=== PATIENT | female | born 1935 ===

== ENCOUNTER 2018-04-12 19:51 | Inpatient (IN) | payer MEDICARE, OTHER ==
[~2018-04-12] VITALS: Ht 153.7 cm; Wt 51.3 kg
[2018-04-12] MEDS ORDERED: ondansetron/PF 4mg/2ml inj IV ONE (19:55)
[2018-04-12] MEDS ORDERED: normal saline 1000ML IV soln IVB ONE (19:55)
[2018-04-12] MEDS ORDERED: morphine 4 MG/ML inj SYRINge IV PRN (19:55)
[2018-04-12 20:31] LABS: BASOPHILS # (AUTO) 0.1 X10'3 (0-0.2); BASOPHILS % (AUTO) 1.1 % (0-1); EOSINOPHILS # (AUTO) 0.4 X10'3 (0-0.9); EOSINOPHILS % (AUTO) 3.2 % (0-6); HEMATOCRIT 47.3 % (35.0-45.0); HEMOGLOBIN 15.7 g/dl (12.0-16.0); LYMPHOCYTES # (AUTO) 2.2 X10'3 (1.1-4.8); LYMPHOCYTES % (AUTO) 19.8 % (21-51); MEAN CORPUSCULAR HEMOGLOBIN 31.9 PG (27.0-31.0); MEAN CORPUSCULAR HGB CONC 33.1 % (33.0-36.5); MEAN CORPUSCULAR VOLUME 96.3 FL (78-98); MEAN PLATELET VOLUME 9.6 FL (7.4-10.4); MONOCYTES # (AUTO) 0.7 X10'3 (0-0.9); MONOCYTES % (AUTO) 6.6 % (2-12); NEUTROPHILS # (AUTO) 7.8 X10'3 (1.8-7.7); NEUTROPHILS % (AUTO) 69.3 % (42-75); PLATELET COUNT 294 X10'3 (140-440); RED BLOOD COUNT 4.91 X10'6 (4.20-5.60); RED CELL DISTRIBUTION WIDTH 14.9 % (11.5-14.5); WHITE BLOOD COUNT 11.3 X10'3 (4.5-11.0)
[2018-04-12 20:47] LABS: ALANINE AMINOTRANSFERASE 85 U/L (12-78); ALBUMIN 2.9 G/DL (3.4-5.0); ALKALINE PHOSPHATASE 271 IU/L (46-116); ANION GAP 13 (8-16); BILIRUBIN,TOTAL 10.8 MG/DL (0.1-1.0); BLOOD UREA NITROGEN 20 MG/DL (7-18); BUN/CREATININE RATIO 16.8 (6.6-38.0); CALCIUM 9.3 MG/DL (8.5-10.1); CHLORIDE 105 MMOL/L (99-107); CREATININE 1.19 MG/DL (0.40-0.90); GLUCOSE 85 MG/DL (70-104); LIPASE 62 U/L (73-393); SODIUM 138 MMOL/L (135-145); TOTAL CARBON DIOXIDE 19.8 MMOL/L (24-32); eGFR 44 ML/MIN
[2018-04-12] MEDS ORDERED: temazepam 15mg capsule PO PRN (21:00)
[2018-04-12 21:27] LABS: ASPARTATE AMINO TRANSFERASE 79 U/L (10-37)
[2018-04-12 21:29] LABS: ALBUMIN/GLOBULIN RATIO 0.8 (1.1-1.5); POTASSIUM 3.8 MMOL/L (3.5-5.1); TOTAL PROTEIN 6.6 G/DL (6.4-8.2)
[2018-04-12] MEDS ORDERED: CALC-1197 PO (21:33)
[2018-04-12] MEDS ORDERED: QUIN20TA18 PO (21:33)
[2018-04-12] MEDS ORDERED: ACET-343 PO (21:33)
[2018-04-12] MEDS ORDERED: OXYC-658 PO (21:33)
[2018-04-12] MEDS ORDERED: ASPI-1265 PO (21:33)
[2018-04-12] MEDS ORDERED: EST1T PO (21:33)
[2018-04-12] MEDS ORDERED: SPIR1TAB4 PO (21:33)
[2018-04-12] MEDS ORDERED: GABA-530 PO (21:33)
[2018-04-12 22:09] LABS: INR 2.5 INR; PARTIAL THROMBOPLASTIN TIME 38 SECONDS (22-32); PROTHROMBIN TIME 24.1 SECONDS (9.0-12.0)
[2018-04-12] MEDS ORDERED: HYDROcodone/acetaminophen 5mg/325mg tablet PO PRN (22:25)
[2018-04-12] MEDS ORDERED: HYDROcodone/acetaminophen 10/325mg tab PO PRN (22:25)
[2018-04-12] MEDS ORDERED: acetaminophen 325mg tablet PO PRN ×2 (22:25)
[2018-04-12] MEDS ORDERED: morphine 2 MG/ML inj. syringe IV PRN (22:25)
[2018-04-12] MEDS ORDERED: magnesium hydroxide 30ml (MOM) UD suspension PO PRN (22:25)
[2018-04-12] MEDS ORDERED: mag hydrox/Alum hydrox/simeth 30ml oral suspension PO PRN (22:25)
[2018-04-12 22:30] VITALS: BP 94/64
[2018-04-12 22:40] LABS: CLARITY,URINE CLEAR (Clear); COLOR,URINE YELLOW (Yellow); GLUCOSE, URINE 100 mg/dl (Neg); KETONES,URINE TRACE mg/dl (Neg); LEUKOCYTE ESTERASE ,URINE NEGATIVE (Neg); NITRITES, URINE NEGATIVE (Neg); OCCULT BLOOD,URINE NEGATIVE (Neg); PROTEIN,URINE NEGATIVE (Neg); UROBILINOGEN,URINE 0.2 E.U/dL (0.2-1.0)
[2018-04-12 22:47] LABS: UA COLLECTION TYPE VOIDED
[2018-04-13] VITALS (32 sets, daily range): BP systolic 94–120; BP diastolic 56–86
[2018-04-13] MEDS: spironolactone 25 MG tablet PO SCH (08:00)
[2018-04-13] MEDS: lisinopril 20mg tablet PO SCH (08:00)
[2018-04-13] MEDS: estradiol 1mg tablet PO SCH (08:00)
[2018-04-13] MEDS: HYDROchlorothiazide 25mg tablet PO SCH (08:00)
[2018-04-13] MEDS: calcium carbonate/vitamin D3 tablet PO SCH ×2 (08:00→20:00)
[2018-04-13] MEDS: normal saline 1000ml 1,000 ML IV SCH ×3 (08:25→19:25)
[2018-04-13 08:33] LABS: BASOPHILS # (AUTO) 0.1 X10'3 (0-0.2); BASOPHILS % (AUTO) 1.2 % (0-1); EOSINOPHILS # (AUTO) 0.5 X10'3 (0-0.9); HEMATOCRIT 39.7 % (35.0-45.0); HEMOGLOBIN 13.1 g/dl (12.0-16.0); LYMPHOCYTES # (AUTO) 1.7 X10'3 (1.1-4.8); LYMPHOCYTES % (AUTO) 21.4 % (21-51); MEAN CORPUSCULAR HEMOGLOBIN 31.7 PG (27.0-31.0); MEAN CORPUSCULAR HGB CONC 33.1 % (33.0-36.5); MEAN CORPUSCULAR VOLUME 95.8 FL (78-98); MEAN PLATELET VOLUME 10.9 FL (7.4-10.4); MONOCYTES # (AUTO) 0.8 X10'3 (0-0.9); MONOCYTES % (AUTO) 10.1 % (2-12); NEUTROPHILS % (AUTO) 61.3 % (42-75); PLATELET COUNT 240 X10'3 (140-440); RED BLOOD COUNT 4.14 X10'6 (4.20-5.60); RED CELL DISTRIBUTION WIDTH 15.2 % (11.5-14.5); WHITE BLOOD COUNT 8.1 X10'3 (4.5-11.0)
[2018-04-13] MEDS ORDERED: fentaNYL/PF 50MCG/1 ML 2ML syringe ONE (08:43)
[2018-04-13] MEDS ORDERED: LIDOcaine Viscous 15ml cup ONE (08:44)
[2018-04-13] MEDS ORDERED: MIDAZolam 5mg/5ml vial ONE (08:44)
[2018-04-13] MEDS ORDERED: glucagon, human recombinant 1mg kit ONE (08:44)
[2018-04-13] MEDS ORDERED: iohexol 300 MG/1 ML 50ml polymer ONE (08:44)
[2018-04-13] MEDS ORDERED: diphenhydrAMINE 50 mg/ml inj ONE (08:44)
[2018-04-13 08:47] LABS: ALANINE AMINOTRANSFERASE 66 U/L (12-78); ALBUMIN 2.6 G/DL (3.4-5.0); ALKALINE PHOSPHATASE 200 IU/L (46-116); ANION GAP 11 (8-16); ASPARTATE AMINO TRANSFERASE 62 U/L (10-37); BLOOD UREA NITROGEN 19 MG/DL (7-18); BUN/CREATININE RATIO 18.4 (6.6-38.0); CALCIUM 8.5 MG/DL (8.5-10.1); CHLORIDE 109 MMOL/L (99-107); CREATININE 1.03 MG/DL (0.40-0.90); GLUCOSE 105 MG/DL (70-104); SODIUM 141 MMOL/L (135-145); TOTAL CARBON DIOXIDE 20.6 MMOL/L (24-32); eGFR 52 ML/MIN
[2018-04-13 08:50] LABS: ALBUMIN/GLOBULIN RATIO 0.8 (1.1-1.5); POTASSIUM 3.7 MMOL/L (3.5-5.1); TOTAL PROTEIN 5.7 G/DL (6.4-8.2)
[2018-04-13 09:00] LABS: PLATELET ESTIMATE NORMAL
[2018-04-13 09:01] LABS: LARGE PLATELETS FEW
[2018-04-13 09:16] LABS: INR 1.8 INR; PROTHROMBIN TIME 17.5 SECONDS (9.0-12.0)
[2018-04-13] MEDS ORDERED: levoFLOXACIN-Levaquin 500mg/D5 100 ML IV ONE (13:33)
[2018-04-13] MEDS: ondansetron/PF 4mg/2ml inj IV PRN (19:41)
[2018-04-13] MEDS: morphine 2 MG/ML inj. syringe IV PRN (19:42)
[2018-04-13] MEDS ORDERED: gabapentin 100mg capsule PO SCH (21:00)
[2018-04-14] VITALS: BP 110/69
[2018-04-14] MEDS: ondansetron/PF 4mg/2ml inj IV PRN ×2 (01:47→13:34)
[2018-04-14] MEDS: morphine 2 MG/ML inj. syringe IV PRN (01:47)
[2018-04-14] MEDS: normal saline 1000ml 1,000 ML IV SCH (05:06)
[2018-04-14 05:18] LABS: BASOPHILS # (AUTO) 0.1 X10'3 (0-0.2); BASOPHILS % (AUTO) 0.8 % (0-1); EOSINOPHILS # (AUTO) 0.4 X10'3 (0-0.9); HEMATOCRIT 41.5 % (35.0-45.0); HEMOGLOBIN 13.8 g/dl (12.0-16.0); LYMPHOCYTES # (AUTO) 1.8 X10'3 (1.1-4.8); LYMPHOCYTES % (AUTO) 19.7 % (21-51); MEAN CORPUSCULAR HEMOGLOBIN 31.8 PG (27.0-31.0); MEAN CORPUSCULAR HGB CONC 33.2 % (33.0-36.5); MEAN CORPUSCULAR VOLUME 95.9 FL (78-98); MEAN PLATELET VOLUME 10.6 FL (7.4-10.4); MONOCYTES # (AUTO) 0.8 X10'3 (0-0.9); MONOCYTES % (AUTO) 8.5 % (2-12); NEUTROPHILS # (AUTO) 6.1 X10'3 (1.8-7.7); PLATELET COUNT 213 X10'3 (140-440); RED BLOOD COUNT 4.33 X10'6 (4.20-5.60); WHITE BLOOD COUNT 9.1 X10'3 (4.5-11.0)
[2018-04-14 06:20] LABS: INR 1.7 INR
[2018-04-14 06:21] LABS: ALANINE AMINOTRANSFERASE 74 U/L (12-78); ALBUMIN 2.6 G/DL (3.4-5.0); ALKALINE PHOSPHATASE 213 IU/L (46-116); ASPARTATE AMINO TRANSFERASE 76 U/L (10-37); BILIRUBIN,TOTAL 10.3 MG/DL (0.1-1.0); BLOOD UREA NITROGEN 11 MG/DL (7-18); BUN/CREATININE RATIO 12.2 (6.6-38.0); CALCIUM 8.3 MG/DL (8.5-10.1); CHLORIDE 105 MMOL/L (99-107); GLUCOSE 97 MG/DL (70-104); TOTAL CARBON DIOXIDE 19.7 MMOL/L (24-32); eGFR 60 ML/MIN
[2018-04-14 06:38] LABS: ALBUMIN/GLOBULIN RATIO 0.7 (1.1-1.5); ANION GAP 13 (8-16); POTASSIUM 3.5 MMOL/L (3.5-5.1); SODIUM 138 MMOL/L (135-145); TOTAL PROTEIN 6.1 G/DL (6.4-8.2)
[2018-04-14 07:14] VITALS: BP 120/91
[2018-04-14] MEDS: calcium carbonate/vitamin D3 tablet PO SCH (08:00)
[2018-04-14] MEDS ORDERED: dextrose 5%-1/2 normal saline 1,000 ML IV SCH (09:20)
[2018-04-14] MEDS: HYDROchlorothiazide 25mg tablet PO SCH (09:52)
[2018-04-14] MEDS: lisinopril 20mg tablet PO SCH (09:52)
[2018-04-14] MEDS: spironolactone 25 MG tablet PO SCH (09:52)
[2018-04-14] MEDS: estradiol 1mg tablet PO SCH (09:52)
[2018-04-14 11:42] VITALS: BP 117/80
[2018-04-16 08:47] LABS: HBSAG SCREEN Negative (Negative); HEP A AB, IGM Negative (Negative); HEP B CORE AB, IGM Negative (Negative); HEPATITIS C ANTIBODY <0.1 s/co ratio (0.0-0.9)
== END 2018-04-14 16:06 | disposition short-term general hospital (02) | DRG 445 ==
LOC: ER 19:52 → ED HOLD 22:25 → SUR 3N 23:35
PROVIDERS: ADMIT Hospitalist; ATTEND Hospitalist
PROC: 0F7D8ZZ Dilation of Pancreatic Duct, Via Natural or Artificial Opening Endoscopic (ICD-10-PCS; principal; 2018-04-13)
PROC: BF111ZZ Fluoroscopy of Biliary and Pancreatic Ducts using Low Osmolar Contrast (ICD-10-PCS; 2018-04-13)
PROC: 30233L1 Transfusion of Nonautologous Fresh Plasma into Peripheral Vein, Percutaneous Approach (ICD-10-PCS; 2018-04-13)
PROC: 30233K1 Transfusion of Nonautologous Frozen Plasma into Peripheral Vein, Percutaneous Approach (ICD-10-PCS; 2018-04-13)
DX: K80.50 Calculus of bile duct without cholangitis or cholecystitis without obstruction (principal); E44.1 Mild protein-calorie malnutrition; E86.0 Dehydration; G89.29 Other chronic pain; I10 Essential (primary) hypertension; I48.0 Paroxysmal atrial fibrillation; K86.89 Other specified diseases of pancreas; M54.5 Low back pain; R79.89 Other specified abnormal findings of blood chemistry; Z66 Do not resuscitate; Z90.49 Acquired absence of other specified parts of digestive tract; Z90.710 Acquired absence of both cervix and uterus; Z87.891 Personal history of nicotine dependence; Z68.21 Body mass index [BMI] 21.0-21.9, adult; Z46.59 Encounter for fitting and adjustment of other gastrointestinal appliance and device
CPT/HCPCS: 36415; 36430; 43274; 43275; 80053; 80074; 81003; 83690; 85025; 85610; 85730; 86885; 86900; 86901; 87070; 96361; 96374; 96375; 99285; A4620; G0378; J1200; J1610; J1956; J2250; J2270; J2405; J3010; J7030; P9059; Q9967

== ENCOUNTER 2018-04-19 15:51 | Inpatient (IN) | payer OTHER ==
[~2018-04-19] VITALS: Ht 153.7 cm; Wt 61.2 kg
[~2018-04-19 15:51] MED LIST: ACET-343 PO; ASPI-1265 PO; CALC-1197 PO; EST1T PO; GABA-530 PO; OXYC-658 PO; QUIN20TA18 PO; SPIR1TAB4 PO
[2018-04-19 19:00] VITALS: BP 126/93
[2018-04-19] MEDS ORDERED: normal saline 1000ml 1,000 ML IV SCH (20:42)
[2018-04-19] MEDS ORDERED: magnesium hydroxide 30ml (MOM) UD suspension PO PRN (20:45)
[2018-04-19] MEDS ORDERED: metoclopramide 5 mg/ml inj IV PRN (20:45)
[2018-04-19] MEDS ORDERED: diphenhydrAMINE 50 mg/ml inj IV PRN (20:45)
[2018-04-19] MEDS ORDERED: mag hydrox/Alum hydrox/simeth 30ml oral suspension PO PRN (20:45)
[2018-04-19] MEDS ORDERED: acetaminophen 325mg tablet PO PRN ×2 (20:45)
[2018-04-19] MEDS ORDERED: HYDROmorphone 1 mg/ml syringe IV PRN (20:45)
[2018-04-19] MEDS ORDERED: bisacodyl 10mg suppository rectal RC PRN (20:45)
[2018-04-19] MEDS ORDERED: HYDROcodone/acetaminophen 10/325mg tab PO PRN (20:45)
[2018-04-19] MEDS ORDERED: acetaminophen 650mg rectal suppository RC PRN (20:45)
[2018-04-19] MEDS ORDERED: diphenhydrAMINE 25mg capsule PO PRN (20:45)
[2018-04-19] MEDS ORDERED: ondansetron/PF 4mg/2ml inj IV PRN (20:45)
[2018-04-19] MEDS ORDERED: gabapentin 100mg capsule PO SCH (21:00)
[2018-04-19] MEDS ORDERED: temazepam 15mg capsule PO PRN (21:00)
[2018-04-19 21:15] LABS: BASOPHILS % (AUTO) 0.2 % (0-1); EOSINOPHILS # (AUTO) 0.5 X10'3 (0-0.9); EOSINOPHILS % (AUTO) 2.9 % (0-6); HEMATOCRIT 44.3 % (35.0-45.0); HEMOGLOBIN 14.7 g/dl (12.0-16.0); LYMPHOCYTES # (AUTO) 1.5 X10'3 (1.1-4.8); LYMPHOCYTES % (AUTO) 8.7 % (21-51); MEAN CORPUSCULAR HEMOGLOBIN 31.8 PG (27.0-31.0); MEAN CORPUSCULAR HGB CONC 33.3 % (33.0-36.5); MEAN CORPUSCULAR VOLUME 95.5 FL (78-98); MEAN PLATELET VOLUME 9.8 FL (7.4-10.4); MONOCYTES # (AUTO) 1.1 X10'3 (0-0.9); MONOCYTES % (AUTO) 6.3 % (2-12); NEUTROPHILS # (AUTO) 14.1 X10'3 (1.8-7.7); NEUTROPHILS % (AUTO) 81.9 % (42-75); PLATELET COUNT 256 X10'3 (140-440); RED BLOOD COUNT 4.64 X10'6 (4.20-5.60); RED CELL DISTRIBUTION WIDTH 15.2 % (11.5-14.5); WHITE BLOOD COUNT 17.2 X10'3 (4.5-11.0)
[2018-04-19] MEDS: morphine 2 MG/ML inj. syringe IV PRN (21:31)
[2018-04-19 21:32] LABS: INR 1.2 INR; PARTIAL THROMBOPLASTIN TIME 30 SECONDS (22-32)
[2018-04-19 21:33] LABS: ALANINE AMINOTRANSFERASE 81 U/L (12-78); ALBUMIN 2.5 G/DL (3.4-5.0); ALKALINE PHOSPHATASE 277 IU/L (46-116); ASPARTATE AMINO TRANSFERASE 76 U/L (10-37); BILIRUBIN,TOTAL 8.2 MG/DL (0.1-1.0); BLOOD UREA NITROGEN 15 MG/DL (7-18); BUN/CREATININE RATIO 13.6 (6.6-38.0); CALCIUM 8.5 MG/DL (8.5-10.1); CHLORIDE 96 MMOL/L (99-107); GLUCOSE 117 MG/DL (70-104); TOTAL CARBON DIOXIDE 29.2 MMOL/L (24-32); eGFR 48 ML/MIN
[2018-04-19 21:41] LABS: LIPASE < 50 U/L (73-393); MAGNESIUM 2.4 MG/DL (1.5-2.4)
[2018-04-19] MEDS ORDERED: normal saline 1000ml 1,000 ML IVB ONE (21:51)
[2018-04-19 21:56] LABS: ALBUMIN/GLOBULIN RATIO 0.7 (1.1-1.5); ANION GAP 2 (8-16); PHOSPHORUS 2.3 MG/DL (2.3-4.5); POTASSIUM 3.9 MMOL/L (3.5-5.1); SODIUM 127 MMOL/L (135-145); TOTAL PROTEIN 6.3 G/DL (6.4-8.2)
[2018-04-19 22:58] LABS: TOTAL CELLS COUNTED 100
[2018-04-19 22:59] LABS: PLATELET ESTIMATE NORMAL; TARGET CELLS FEW
[2018-04-20] VITALS: BP 119/66
[2018-04-20] MEDS: diltiazem 30mg tablet PO SCH ×2 (02:00→08:00)
[2018-04-20] MEDS ORDERED: normal saline 1000ml 1,000 ML IV SCH (03:37)
[2018-04-20 04:28] LABS: ALANINE AMINOTRANSFERASE 68 U/L (12-78); ALBUMIN 2.2 G/DL (3.4-5.0); ALKALINE PHOSPHATASE 245 IU/L (46-116); ANION GAP 7 (8-16); ASPARTATE AMINO TRANSFERASE 62 U/L (10-37); BILIRUBIN,TOTAL 7.2 MG/DL (0.1-1.0); BLOOD UREA NITROGEN 15 MG/DL (7-18); BUN/CREATININE RATIO 16.1 (6.6-38.0); CALCIUM 8.2 MG/DL (8.5-10.1); CHLORIDE 97 MMOL/L (99-107); CREATININE 0.93 MG/DL (0.40-0.90); GLUCOSE 122 MG/DL (70-104); SODIUM 131 MMOL/L (135-145); TOTAL CARBON DIOXIDE 26.6 MMOL/L (24-32); eGFR 58 ML/MIN
[2018-04-20 04:32] LABS: ALBUMIN/GLOBULIN RATIO 0.6 (1.1-1.5); POTASSIUM 4.2 MMOL/L (3.5-5.1); TOTAL PROTEIN 5.6 G/DL (6.4-8.2)
[2018-04-20 04:33] LABS: BASOPHILS # (AUTO) 0.1 X10'3 (0-0.2); BASOPHILS % (AUTO) 0.4 % (0-1); EOSINOPHILS # (AUTO) 0.5 X10'3 (0-0.9); EOSINOPHILS % (AUTO) 3.2 % (0-6); HEMATOCRIT 41.1 % (35.0-45.0); HEMOGLOBIN 13.6 g/dl (12.0-16.0); LYMPHOCYTES # (AUTO) 1.5 X10'3 (1.1-4.8); LYMPHOCYTES % (AUTO) 9.6 % (21-51); MEAN CORPUSCULAR HEMOGLOBIN 31.9 PG (27.0-31.0); MEAN CORPUSCULAR HGB CONC 33.2 % (33.0-36.5); MEAN CORPUSCULAR VOLUME 95.9 FL (78-98); MEAN PLATELET VOLUME 10.8 FL (7.4-10.4); MONOCYTES # (AUTO) 1.1 X10'3 (0-0.9); NEUTROPHILS # (AUTO) 12.4 X10'3 (1.8-7.7); NEUTROPHILS % (AUTO) 79.8 % (42-75); PLATELET COUNT 207 X10'3 (140-440); RED BLOOD COUNT 4.29 X10'6 (4.20-5.60); RED CELL DISTRIBUTION WIDTH 15.1 % (11.5-14.5); WHITE BLOOD COUNT 15.6 X10'3 (4.5-11.0)
[2018-04-20 07:15] VITALS: BP 122/80
[2018-04-20] MEDS ORDERED: pantoprazole 40mg Tablet.DR PO SCH (07:30)
[2018-04-20] MEDS ORDERED: piperacillin-tazo 2.25gm/50ml 50 ML IV SCH (08:00)
[2018-04-20] MEDS ORDERED: lisinopril 20mg tablet PO SCH (08:00)
[2018-04-20] MEDS ORDERED: docusate sod 100mg capsule PO SCH (08:00)
[2018-04-20] MEDS: morphine 2 MG/ML inj. syringe IV PRN (08:07)
[2018-04-20] MEDS ORDERED: aspirin 81mg tab.chew PO SCH (08:30)
[2018-04-20 09:24] LABS: ANISOCYTOSIS 1+; PLATELET ESTIMATE NORMAL; POLYCHROMASIA 1+; TARGET CELLS FEW
[2018-04-20 11:00] VITALS: BP 116/77
[2018-04-20] MEDS ORDERED: OXYC-658 PO (13:56)
== END 2018-04-20 14:57 | disposition home or self-care (01) | DRG 871 ==
LOC: SUR 3N 18:54
PROVIDERS: ADMIT Internal Medicine; ATTEND Family Medicine
DX: A41.9 Sepsis, unspecified organism (principal); K83.1 Obstruction of bile duct; C25.9 Malignant neoplasm of pancreas, unspecified; E87.1 Hypo-osmolality and hyponatremia; K83.09 Other cholangitis; C78.7 Secondary malignant neoplasm of liver and intrahepatic bile duct; I10 Essential (primary) hypertension; I48.91 Unspecified atrial fibrillation; Z66 Do not resuscitate; Z90.710 Acquired absence of both cervix and uterus; Z79.899 Other long term (current) drug therapy; Z79.82 Long term (current) use of aspirin
CPT/HCPCS: 36415; 80053; 83690; 83735; 83880; 84100; 85025; 85610; 85730; G0378; J2270; J2405; J2543; J7030